=== PATIENT | male | born 1970 | race Caucasian/White ===

== ENCOUNTER 2016-03-13 07:09 | Day surgery (SDC) | payer OTHER ==
[~2016-03-13] VITALS: Ht 175.3 cm; Wt 79.4 kg
[~2016-03-13 07:09] MED LIST: ASPIR-LOW81 MG PO; CLEOCIN300 MG PO; NITROSTAT0.4 MG SL; NORCO 5/3251 TABLET PO; PANTOPRAZOLE SO40 MG PO; PROTONIX40 MG PO
[2016-03-13 08:03] VITALS: BP 115/83
[2016-03-13] MEDS ORDERED: PERCOCET 5/31 TABLET PO (10:28)
[2016-03-13 11:30] VITALS: BP 113/72
[2016-03-13 12:08] VITALS: BP 119/73
== END 2016-03-13 12:19 | disposition home or self-care (01) ==
LOC: SDC 07:09
PROC: 0D9QXZZ Drainage of Anus, External Approach (ICD-10-PCS; principal; 2016-03-13)
DX: K61.0 Anal abscess (principal); J45.909 Unspecified asthma, uncomplicated; F17.200 Nicotine dependence, unspecified, uncomplicated; K21.9 Gastro-esophageal reflux disease without esophagitis
CPT/HCPCS: J0690; J1100; J1170; J1885; J2250; J2405; J3010